=== PATIENT | male | born 1970 | race Caucasian/White ===

== ENCOUNTER 2021-09-22 00:44 | Day surgery (SDC) | payer BC, SELFPAY ==
[2021-09-07 13:18] VITALS: BMI 26.3
--- NOTE | 2021-09-21 14:11 | PM.HPGS ---
History of Present Illness History of Present Illness Consent: Risks, benefits, and alternatives have been discussed and questions answered. Patient agrees to proceed with procedure. Chief complaint: neoplasm screening Narrative: aJy Le is a 50 year old male Who was referred for colon cancer screening. Review of Systems Review of Systems: All systems reviewed & are unremarkable except as noted in HPI and below PMFSH Past Medical History Medical History Body mass index [BMI] 29.0-29.9, adult (11/15/17) Encounter for preventative adult health care examination Hyperlipidemia Screening for endocrine disorder Screening for lipid disorders Surgical History Surgical History History of appendectomy Family History Family History Mother Patient's mother is in good health Father Patient's father is in good health Grandparent Hodgkins disease Social History Social History Smoking status: Current some day smoker Tobacco type: cigars Alcohol intake: current Drinks per week: 10 Alcohol use details: socially Substance use type: does not use Living arrangements: with family Spiritual care concerns: No Meds Home Medications and Allergies Home Medications Medication Instructions Recorded Confirmed Type ascorbic acid (vitamin C) 1,000 mg 1 gm PO DAILY 02/20/19 09/07/21 History tablet multivitamin 1 tablet PO DAILY 02/20/19 09/07/21 History vitamin B complex 1 tablet PO DAILY 02/20/19 09/07/21 History atorvastatin 20 mg tablet 20 mg PO QHS #90 tabs 11/25/20 09/07/21 Rx Allergies Allergy/AdvReac Type Severity Reaction Status Date / Time No Known Allergies Allergy Unverified 09/22/21 08:22 Exam Resp: Auscultation: clear to auscultation bilaterally Cardio: Rate: regular rate Rhythm: regular rhythm GI: GI Palp: Yes Soft to palpation and No Tenderness to palpation present (GI) Assessment and Plan Assessment and plan (1) Screening for colon cancer: Code(s): Z12.11 - Encounter for screening for malignant neoplasm of colon Status: Acute Assessment and Plan: Colonoscopy with possible biopsy or polypectomy or cautery or injection of substances.
[2021-09-22 08:23] VITALS: BP 149/83; PULSE 86; RESP 17; TEMP 36.5; O2SAT 100
[2021-09-22] MEDS: LACTATED RINGERS 1,000 ML 150 ML IV CONT (08:33)
--- NOTE | 2021-09-22 08:58 | P.PNAN_ITS ---
Anes - Initial Pre Proc Eval Procedure: Operation Date: 09/22/21 09:30 Proposed Procedures p Screening Colonoscopy - Wily Johnson MD Date/Time: 09/22/21 08:58 Surgeon: Wily Johnson MD Pre Op Diagnosis: neoplasm screening Patient Data Age: 50 Gender: M Height: 1.83 m Weight: 86.6 kg Last Vital Signs Temp 36.5 C 09/22/21 08:23 Pulse 86 09/22/21 08:23 Resp 17 09/22/21 08:23 BP 149/83 H 09/22/21 08:23 Pulse Ox 100 09/22/21 08:23 O2 Del Method Room Air 09/22/21 08:23 Allergies Allergy/AdvReac Type Severity Reaction Status Date / Time No Known Allergies Allergy Unverified 09/22/21 08:22 Home Medications Medication Instructions Recorded Confirmed Type ascorbic acid (vitamin C) 1,000 mg 1 gm PO DAILY 02/20/19 09/07/21 History tablet multivitamin 1 tablet PO DAILY 02/20/19 09/07/21 History vitamin B complex 1 tablet PO DAILY 02/20/19 09/07/21 History atorvastatin 20 mg tablet 20 mg PO QHS #90 tabs 11/25/20 09/07/21 Rx Patient hx anesthesia problems: none Family hx anesthesia problems: none Results Review: All pre-operative results and documents have been reviewed as part of the pre- operative evaluation. [facility] Past Medical History Medical History Body mass index [BMI] 29.0-29.9, adult (11/15/17) Encounter for preventative adult health care examination Hyperlipidemia Screening for endocrine disorder Screening for lipid disorders Surgical History Surgical History History of appendectomy Family History Family History Mother Patient's mother is in good health Father Patient's father is in good health Grandparent Hodgkins disease Social History Social History Smoking status: Current some day smoker Tobacco type: cigars Alcohol intake: current Drinks per week: 10 Alcohol use details: socially Substance use type: does not use Living arrangements: with family Spiritual care concerns: No Anes - Eval Final PreProcedure Day of Procedure 09/22/21 08:58 Patient weight: normal Heart: regular rate and rhythm Lungs: clear to auscultation Airway: Mallampati scale class II Neurological: alert and oriented Last oral intake: >/= 8 hours ASA classification: II Emergent: no Anesthetic plan: proceed Anesthesia type and monitoring: general GIVS and standard monitoring Results Review: All pre-operative results and documents have been reviewed as part of the pre- operative evaluation. Informed Consent: The patient's anesthetic plan and its attendant risks and benefits were discussed with the patient/family/POA. Questions were solicited and answers provided to the satisfaction of the patient/family/POA.
[2021-09-22 09:35] VITALS: BP 131/81; PULSE 75; RESP 18; O2SAT 98
[2021-09-22 09:45] VITALS: BP 134/80; PULSE 82; RESP 20; O2SAT 100
[2021-09-22 09:55] VITALS: BP 135/83; PULSE 77; RESP 18; O2SAT 100
== END 2021-09-22 10:05 | disposition home or self-care (01) ==
PROVIDERS: PCP Internal Medicine; Visit Provider Internal Medicine Gastroenterology
PROC: 0DJD8ZZ Inspection of Lower Intestinal Tract, Via Natural or Artificial Opening Endoscopic (ICD-10-PCS; CPT 45378; principal; 2021-09-22 09:30)
DX: Z12.11 Encounter for screening for malignant neoplasm of colon (principal); K64.8 Other hemorrhoids; E78.5 Hyperlipidemia, unspecified; F17.290 Nicotine dependence, other tobacco product, uncomplicated
CPT/HCPCS: 45378; J2704; J7120

== ENCOUNTER 2024-01-14 12:27 | Outpatient (CLI) | payer OTHER, SELFPAY ==
--- NOTE | 2024-01-14 13:28 | NEURO_ITS ---
Impression: # Complains of numbness of feet. # Borderline asymmetrical motor/sensory axonal neuropathy. # Needle/EMG exam mildly neurogenic in right EDB. # Clinical correlation recommended. Nerve Conduction Studies Anti Sensory Summary Table Stim Site NR Peak (ms) P-T Amp (?V) Site1 Site2 Delta-P (ms) Dist (cm) Sharad (m/s) Left Sup Fibular Anti Sensory (Ant Lat Mall) 14 cm 3.2 13.4 14 cm Ant Lat Mall 3.2 16.0 50 Right Sup Fibular Anti Sensory (Ant Lat Mall) 14 cm 3.6 16.8 14 cm Ant Lat Mall 3.6 16.0 44 Left Sural Anti Sensory (Lat Mall) Calf 3.5 4.5 Calf Lat Mall 3.5 16.0 46 Right Sural Anti Sensory (Lat Mall) NO RESPONSE Calf NR Calf Lat Mall 16.0 Motor Summary Table Stim Site NR Onset (ms) O-P Amp (mV) Site1 Site2 Delta-0 (ms) Dist (cm) Sharad (m/s) Left Peroneal Motor (Vastus Med) Ankle 4.3 3.3 Popit Ankle 9.8 47.0 48 Popit 14.1 2.2 Right Peroneal Motor (Vastus Med) Ankle 4.2 2.2 Popit Ankle 9.6 44.0 46 Popit 13.8 1.3 Left Tibial Motor (Abd Sanabria Brev) Ankle 4.7 4.8 Knee Ankle 10.5 46.0 44 Knee 15.2 2.5 Right Tibial Motor (Abd Sanabria Brev) Ankle 4.8 6.4 Knee Ankle 10.9 44.0 40 Knee 15.7 4.3 F Wave Studies NR F-Lat (ms) L-R F-Lat (ms) Left Peroneal (Mrkrs) (EDB) 55.09 0.06 Right Peroneal (Mrkrs) (EDB) 55.15 0.06 Left Tibial (Mrkrs) (Abd Hallucis) 55.49 0.85 Right Tibial (Mrkrs) (Abd Hallucis) 54.63 0.85 EMG Side Muscle Nerve Root Ins Act Fibs Amp Dur Recrt Comment Right AntTibialis Dp Br Fibular L4-5 Nml Nml Nml Nml Nml Right Gastroc Tibial S1-2 Nml Nml Nml Nml Nml Right Fibularis Long Sup Br Fibular L5-S1 Nml Nml Nml Nml Nml Right Flex Dig Long Tibial L5-S2 Nml Nml Nml Nml Nml Right Ext Dig Brev Dp Br Fibular L5, S1 Nml Nml Nml >12ms +1 Right QuadratusFem QuadFemoris L4-5, S1 Nml Nml Nml Nml Nml Left AntTibialis Dp Br Fibular L4-5 Nml Nml Nml Nml Nml Left Gastroc Tibial S1-2 Nml Nml Nml Nml Nml Left Fibularis Long Sup Br Fibular L5-S1 Nml Nml Nml Nml Nml Left Flex Dig Long Tibial L5-S2 Nml Nml Nml Nml Nml Left Ext Dig Brev Dp Br Fibular L5, S1 Nml Nml Nml Nml Nml Left QuadratusFem QuadFemoris L4-5, S1 Nml Nml Nml Nml Nml MTDD
== END 2024-01-14 12:28 | disposition home or self-care (01) ==
LOC: ANHNEURO 12:29
PROVIDERS: PCP Internal Medicine; Visit Provider Nurse Practitioner
DX: G62.9 Polyneuropathy, unspecified (principal)
CPT/HCPCS: 95886; 95910